=== PATIENT | female | born 1995 | race Asian ===

== ENCOUNTER 2018-07-17 17:55 | Emergency (ER) | payer BC ==
[2018-07-17] MEDS ORDERED: Ibuprofen TAB* 600 MG PO ONE (19:32)
--- NOTE | 2018-07-17 21:04 | ED ---
Lower Extremity - HPI Summary HPI Summary: Patient complains of right knee pain after hearing pop while dancing last night. States she cannot bend knee due to pain. Patient ambulatory. Denies any other pain or injury. - History of Current Complaint Chief Complaint: EDExtremityLower Stated Complaint: RT KNEE INJURY Time Seen by Provider: 07/17/18 19:19 Hx Obtained From: Patient Mechanism Of Injury: Unknown Onset of Pain: Immediate Onset/Duration: Days Severity Initially: Moderate Severity Currently: Severe Pain Intensity: 9 Pain Scale Used: 0-10 Numeric Timing: Constant Location: Is Discrete @ Associated Signs And Symptoms: Positive: Negative, Knee Pain Aggravating Factor(s): Ambulation, Weight Bearing Alleviating Factor(s): Rest Able to Bear Weight: Yes - Allergies/Home Medications Allergies/Adverse Reactions: Allergies Allergy/AdvReac Type Severity Reaction Status Date / Time adapalene [From Epiduo] Allergy Facial Verified 07/17/18 18:04 Redness/Flushing benzoyl peroxide Allergy Facial Verified 07/17/18 18:04 [From Epiduo] Redness/Flushing PMH/Surg Hx/FS Hx/Imm Hx Endocrine/Hematology History: Denies: Hx Anticoagulant Therapy, Hx Diabetes Cardiovascular History: Denies: Hx Hypertension, Hx Pacemaker/ICD Respiratory History: Denies: Hx Asthma History: Denies: Hx Dialysis, Hx Renal Disease Sensory History: Denies: Hx Hearing Aid Neurological History: Denies: Hx CVA Psychiatric History: Reports: Hx Panic Disorder - VERY ANXIOUS ABOUT INJECTION - GIVEN INSTRUCTIONS TO SEE PRIMARY Infectious Disease History: No Infectious Disease History: Denies: Traveled Outside the [place] in Last 30 Days - Social History Alcohol Use: Weekly Substance Use Type: Reports: Marijuana Smoking Status (MU): Never Smoked Tobacco Review of Systems Constitutional: Negative Eyes: Negative ENT: Negative Cardiovascular: Negative Respiratory: Negative Gastrointestinal: Negative Genitourinary: Negative Positive: Arthralgia Skin: Negative Neurological: Negative Psychological: Normal All Other Systems Reviewed And Are Negative: Yes Physical Exam - Summary Physical Exam Summary: Minimal swelling to right knee. No evidence of erythema, ecchymosis, deformity , extra warmth noted. Patient will not bend knee due to pain. Patient observed ambulating. PMS intact distally Triage Information Reviewed: Yes Vital Signs On Initial Exam: Initial Vitals Temp Pulse Resp BP Pulse Ox 99.2 F 91 16 129/73 99 07/17/18 18:02 07/17/18 18:02 07/17/18 18:02 07/17/18 18:02 07/17/18 18:02 Vital Signs Reviewed: Yes Appearance: Positive: Well-Appearing Skin: Positive: Warm Head/Face: Positive: Normal Head/Face Inspection Eyes: Positive: Normal Neck: Positive: Supple Respiratory/Lung Sounds: Positive: Clear to Auscultation Cardiovascular: Positive: Normal Abdomen Description: Positive: Nontender Musculoskeletal: Positive: Normal Neurological: Positive: Normal Psychiatric: Positive: Normal AVPU Assessment: Alert - Debra Coma Scale Best Eye Response: 4 - Spontaneous Best Motor Response: 6 - Obeys Commands Best Verbal Response: 5 - Oriented Coma Scale Total: 15 Diagnostics - Vital Signs Vital Signs Temp Pulse Resp BP Pulse Ox 07/17/18 18:02 99.2 F 91 16 129/73 99 - Laboratory Lab Statement: Any lab studies that have been ordered have been reviewed, and results considered in the medical decision making process. - Radiology knee Xray Interpretation: No Acute Changes Radiology Interpretation Completed By: Radiologist Lower Extremity Course/Dx - Course Course Of Treatment: Patient complains of right knee pain after hearing pop while dancing last night. States she cannot bend knee due to pain. Patient ambulatory. Denies any other pain or injury. Physical exam:Minimal swelling to right knee. No evidence of erythema, ecchymosis, deformity, extra warmth noted. Patient will not bend knee due to pain. Patient observed ambulating. PMS intact distally. Imaging negative. Patient provided with crutches and knee immobilizer. Follow-up with orthopedics - Diagnoses Provider Diagnoses: Knee pain, right Discharge - Sign-Out/Discharge Documenting (check all that apply): Patient Departure - Discharge Plan Condition: Stable Disposition: HOME Patient Education Materials: Knee Pain (ED) Referrals: No Primary Care Phys,NOPCP [Primary Care Provider] - Benitez Li MD [Medical Doctor] - Additional Instructions: Ice, elevation, rest, ibuprofen. Symptoms do not improve within a couple days follow-up with orthopedics Dr. Rousseau for further evaluation. Return to the ED for any new or worsening symptoms - Billing Disposition and Condition Condition: STABLE Disposition: Home
[2018-07-17] MEDS ORDERED: Acetaminophen TAB* 325 MG PO ONE (21:07)
[2018-07-17 21:29] VITALS: BP 149/73
--- NOTE | 2018-07-18 08:05 | RAD ---
Indication: Right knee injury. 4 views of the right knee demonstrate no fracture or dislocation. There is moderate size joint effusion noted. Soft tissue swelling is noted medially. IMPRESSION: Joint effusion without fracture. R0
== END 2018-07-17 21:28 | disposition home or self-care (01) ==
LOC: ED 17:55
DX: M25.561 Pain in right knee (principal); Z88.8 Allergy status to other drugs, medicaments and biological substances
CPT/HCPCS: 99282; A9270-GY

== ENCOUNTER 2018-08-22 07:27 | Day surgery (SDC) | payer BC ==
[~2018-08-22 07:27] MED LIST: Bacitracin IV* 50,000 UNITS INJ ONE; Buffered Lidocaine 0.9% SYRIN* 5 ML/SYR SYRINGE INTRADERM ONE; Lidocain 1% EPI 1:100,000 * 30 ML MDV ONE; Thrombin 5,000 UNITS* 1 APPLIC KIT - topical use - TOPICAL ONE
[2018-08-22] MEDS ORDERED: ceFAZolin 2 GM PREMIX in ORs 2 GM/50 ML BAG IVPB ONE (08:02)
[2018-08-22] MEDS ORDERED: Bupivacaine 0.5% SDV PF* 30ML VIAL ONE (08:31)
[2018-08-22] MEDS ORDERED: Propofol* 10 MG/ML 20 ML BTL IV PUSH ONE (09:06)
[2018-08-22] MEDS ORDERED: Midazolam* 1 MG/ML 5 ML VIAL (5 MG) ONE (09:06)
[2018-08-22] MEDS ORDERED: fentaNYL* 50 MCG/ML 2 ML VIAL (100 MCG VIAL) ONE ×2 (09:06→10:50)
[2018-08-22] MEDS ORDERED: Dexamethasone IV* 4 MG/ML 1 ML (4 MG) ONE (09:30)
[2018-08-22] MEDS ORDERED: Ketorolac INJ* 30 MG/ML 1 ML VIAL ONE (09:30)
[2018-08-22] MEDS ORDERED: Ondansetron INJ* 2 MG/ML VIAL IV PRN (09:54)
[2018-08-22] MEDS ORDERED: HYDROmorphone INJ1* 1 MG/ML SYRINGE IV PRN (09:54)
[2018-08-22] MEDS ORDERED: Acetaminophen IV 1GM/100ML * 1,000 MG/100 ML VIAL IVPB ONE (09:54)
[2018-08-22] MEDS ORDERED: Naloxone* 0.4 MG/ML 1 ML VIAL IV PRN (09:54)
[2018-08-22] MEDS ORDERED: Scopolamine 1.5 mg* PATCH TRANSDERM PRN (09:54)
[2018-08-22] MEDS ORDERED: fentaNYL* 50 MCG/ML 2 ML VIAL (100 MCG VIAL) IV PRN (09:54)
[2018-08-22] MEDS ORDERED: oxyCODONE TAB* 5 MG TAB PO PRN (09:54)
[2018-08-22] MEDS ORDERED: Ondansetron INJ* 2 MG/ML VIAL ONE (11:36)
[2018-08-22] MEDS ORDERED: Acetaminophen IV 1GM/100ML * 100 ML ONE (12:39)
[2018-08-22 13:18] VITALS: BP 133/96
--- NOTE | 2018-08-22 17:54 | OP ---
Operative Report - Blank - Operative Report Date of Operation: 08/22/18 Note: PATIENT: Argelia Burrows DATE OF : 1995 DATE OF SURGERY: 08/22/2018 SURGEON: Benitez Li MD [employer] PROCESSING SUPERVISOR: PUJA Man, whos assistance was necessary for positioning, retraction, help with instrumentation, and closure. ANESTHESIOLOGIST: Dr. Silva PREOPERATIVE DIAGNOSIS: Right knee ACL tear POSTOPERATIVE DIAGNOSIS: Right knee ACL tear OPERATION: Right knee arthroscopic ACL reconstruction with hamstring tendon autograft ANESTHESIA: GETA + block IMPLANTS: Arthrex TightRope for femoral fixation. Arthrex GraftBolt for tibial fixation. TOURNIQUET TIME: Less than 2 hours with a well-padded thigh tourniquet SPECIMENS: none ESTIMATED BLOOD LOSS: minimal COMPLICATIONS: none STATUS: Stable from the operating room to the recovery room and then home. INDICATIONS FOR PROCEDURE: Argelia sustained w right ACL tear. Both operative and non operative treatment alternatives were reviewed. Further, the nature and risks of surgery were reviewed in careful detail, in the office as well as the pre-operative holding area. Our discussions regarding the risks of surgery included, but were not limited to, infection, wound problems, nerve injury, neuroma, RSD, persistent symptoms, blood clot, failure of the surgery, re-rupture, post-traumatic arthritis, and even the remote chance of catastrophic complication, including loss of limb. DESCRIPTION OF PROCEDURE: The patient was seen in the preoperative holding unit and informed written consent was obtained. The appropriate extremity was marked. The patient was then brought to the operating room and carefully positioned on the operating room table. Anesthesia was induced. All bony prominences were padded with great care. A well-padded thigh tourniquet was placed. A chlorhexidine based pre- scrub was performed followed by a chloraprep prep and drape in standard sterile fashion. A surgical safety pause was then conducted in which we confirmed the appropriate patient, extremity, planned procedure, availability of equipment, indication and administration of prophylactic antibiotics, and DVT prophylaxis in the form of a compression boot on the non-surgical extremity. I began with an examination of the knee under anesthesia. She had gross laxity on Martha testing and a positive pivot shift. We began with an Esmarch exsanguination of the limb and inflated the tourniquet. I then made a standard anterolateral knee arthroscopy portal. A diagnostic arthroscopy was performed. The articular cartilage appeared to be in good condition in all three compartments. No meniscal tears were seen. The ACL was confirmed to be ruptured. I then turned my attention to the hamstring autograft harvest. An approximately 4 cm incision was made over the pes anserinus. The sartorius fascia was then incised distally and the hamstring tendons were visualized from the deep aspect of the pes anserinus. The MCL was visualized on the bone and was left intact. The gracilis and semitendinosus tendons were dissected out. The ends of the tendon were whipstitched with a fiber loop suture. I then utilized a tendon stripper to harvest first the gracilis tendon and then the semi-semitendinosus tendon. Both tendons were robust and of good length. The tendons were then cleared of muscle on the back table and the other ends were again whipstitched with fiber loop sutures. These were quadrupled with the apex of the V being the Arthrex TightRope looped suture. The graft was sized to an 8 mm diameter. It was then placed on stretch while I proceeded with a knee arthroscopy. A bacitracin-soaked sponge covered the tendon. The arthroscope was reinserted into the knee and the remnant of the ACL was debrided to provide good visualization of the notch. The lateral wall of the notch was then cleared using a shaver as well as cautery. This was brought all the way back to the posterior edge of the femoral condyle. Additionally, a amanda was made at the tibial insertion of the ACL onto the tibia, which was where I would later place my tibial tunnel. This was in line with the posterior aspect of the anterior horn of the lateral meniscus and on the lateral slope of the medial tibial spine. A femoral flip-cutter guide was then placed through the anterolateral portal to the anatomic spot of the ACL insertion onto the femur. The lateral femur was approached with an approximately 1 cm incision anterior to the posterior aspect of the iliotibial band. Using the guide and flip-cutter, I retrograde drilled an 8 mm femoral socket. The femoral socket was about 30 mm in length and was visualized through the anteromedial portal with the scope, showing a well- formed socket with good cortical bone laterally. A fiber wire suture was then placed through the femoral tunnel for later graft passage. Attention was then turned to the tibial tunnel. The tibial aiming guide was placed and a guidewire was drilled into the joint. I then utilized an 8 mm reamer to overdrill the guidewire and make the tibial tunnel. I then used a suture grasper through the tibial tunnel to grab the looped fiber wire suture and pulled it through the tibial tunnel. I then pulled the tight rope button through the tunnels and watched it flipped under direct visualization on the lateral femoral cortex. I then used a toggling maneuver with traction on the distal end of the graft to toggle the graft up through the tibial tunnel and into the femoral socket. I had previously marked out 20 mm of graft to ensure that at least this much was in the femoral socket, which was achieved. The knee was then cycled through full range of motion numerous times while holding tension on the graft distally. There was no anterior impingement. The knee was then brought to 30 of flexion and a reverse Martha maneuver was performed. While holding the graft on tension, a nitinol guidewire and dilators were used, and then a GraftBolt sheath and screw were placed into the tibial tunnel, providing excellent fixation. This was a 7 mm GraftBolt. Excess graft was then removed distally. Martha and pivot shift were then tested and the knee was very stable on Martha and there was no pivot shift. Final arthroscopic images were obtained. There was no anterior impingement of the graft. All of the wounds were copiously irrigated. The sartorius fascia was closed and then all the wounds were closed in a layered fashion utilizing 0 vicryl, 3-0 Monocryl and 3-0 PDS. The portals were closed with 3-0 nylon sutures. A sterile dressing was then applied, as well as a NAVEEN stocking, Cryo/Cuff and Lynn brace with the knee locked in extension. The patient was then awakened from anesthesia and transferred to the recovery room in stable condition. There were no complications. All needle and sponge counts were correct at the end of the case. ATTESTATION: I attest I was present and scrubbed and performed the critical portions of the procedure myself. POSTOPERATIVE PLAN: She will remain toe-touch weight-bearing and follow-up in 2 weeks for likely suture removal. My post-op protocol/instructions were given to the patient.
[2018-08-25] MEDS ORDERED: Scopolamine PATCH Remove* 1 NOTE MISC PATCH OFF ONE (09:55)
== END 2018-08-22 13:26 | disposition home or self-care (01) ==
LOC: OR 07:27
PROVIDERS: ATTEND Orthopaedic Surgery
DX: S83.511A Sprain of anterior cruciate ligament of right knee, initial encounter (principal); X50.0XXA Overexertion from strenuous movement or load, initial encounter; Y93.41 Activity, dancing; Y92.9 Unspecified place or not applicable; F41.8 Other specified anxiety disorders
CPT/HCPCS: 81025; A9270-GY; C1713; C1776; J0690; J1100; J1885; J2250; J2405; J2704; J3010